=== PATIENT | female | born 1955 | race Two or more races ===

== ENCOUNTER 2020-09-27 11:45 | Outpatient (CLI) | payer OTHER ==
[~2020-09-27 11:45] MED LIST: BONIVA150 MG PO; CALCIUM1 TAB; COCONUT OIL1000 MG PO; DAILY VALUE1 EACH PO; LOVAZA1 G PO; MOTRIN800 MG PO; VASOTEC5 MG PO; VYTORIN 10-20 M1 TAB PO
== END 2020-09-27 11:59 | disposition home or self-care (01) ==
LOC: TOM 11:45
PROVIDERS: ATTEND Otolaryngology
DX: R22.1 Localized swelling, mass and lump, neck (principal); D49.0 Neoplasm of unspecified behavior of digestive system

== ENCOUNTER → 2020-09-28 | Outpatient (CLI) | payer OTHER | END | disposition home or self-care (01) | LOC: OFIC 805 12:00 | PROVIDERS: ATTEND Otolaryngology | DX: D11.0 Benign neoplasm of parotid gland (principal) ==

== ENCOUNTER 2020-10-18 18:23 | Emergency (ER) | payer OTHER ==
[~2020-10-18] VITALS: Ht 149.9 cm; Wt 53.5 kg
[2020-10-19] MEDS ORDERED: NAPROXEN375 MG PO (01:59)
[2020-10-19] MEDS ORDERED: PEPCID AC20 MG PO (01:59)
== END 2020-10-19 02:12 | disposition home or self-care (01) ==
LOC: ER 18:23
DX: M25.551 Pain in right hip (principal)

== ENCOUNTER 2021-03-16 09:58 | Outpatient (CLI) | payer OTHER ==
[~2021-03-16 09:58] MED LIST changes: +NAPROXEN375 MG PO; +PEPCID AC20 MG PO
== END 2021-03-16 10:39 | disposition home or self-care (01) ==
LOC: OFIC 805 09:58
PROVIDERS: ATTEND Otolaryngology
DX: K11.1 Hypertrophy of salivary gland (principal)